=== PATIENT | male | born 1970 | race Caucasian/White ===

== ENCOUNTER 2017-12-13 22:39 | Emergency (ER) | payer OTHER ==
[~2017-12-13] VITALS: Ht 185.4 cm; Wt 77.1 kg
[~2017-12-13 22:39] MED LIST: BACTRIM DS TAB1 EACH PO; COLACE100 MG PO; HYDROCODONE-AP1 EAC6 PO; IBUPROFEN 800800 M1 PO; ONDANSETRON HCL4 M2 PO; TRAMADOL 50 MG50 MG PO; ZOFRAN ODT4 MG PO
[2017-12-14 00:10] VITALS: BP 136/82
== END 2017-12-14 00:10 | disposition home or self-care (01) ==
LOC: M.ERS 22:39
DX: S00.83XA Contusion of other part of head, initial encounter (principal); Z88.0 Allergy status to penicillin; W22.8XXA Striking against or struck by other objects, initial encounter; Y93.89 Activity, other specified; Y92.59 Other trade areas as the place of occurrence of the external cause; Y99.8 Other external cause status

== ENCOUNTER 2018-03-19 18:18 | Emergency (ER) | payer OTHER ==
[~2018-03-19] VITALS: Ht 185.4 cm; Wt 77.1 kg
[2018-03-19 19:00] LABS: ABSOLUTE BASOPHILS 0.1 thou/uL (0.0-0.2); ABSOLUTE EOSINOPHILS 0.2 thou/uL (0.0-0.7); ABSOLUTE LYMPHOCYTES 1.3 thou/uL (0.8-5.3); ABSOLUTE MONOCYTES 0.6 thou/uL (0.0-1.2); ABSOLUTE NEUTROPHILS 7.9 thou/uL (1.6-8.1); BASOPHILS 0.7 %; EOSINOPHILS 2.1 %; HEMATOCRIT 46.7 % (42.0-52.0); HEMOGLOBIN 15.6 gm/dL (14.0-18.0); LYMPHOCYTES 13.4 %; MCH 29.2 pg (26.0-34.0); MCHC 33.3 g/dL (28.0-37.0); MCV 87.5 fL (80.0-100.0); MPV 6.3 fl. (7.2-11.1); NUCLEATED RBCS 0 /100WBC; PLATELET COUNT* 286 thou/uL (150-400); POLYS 77.8 %; RBC 5.33 mil/uL (4.50-6.00); RDW-CV 13.4 % (10.5-14.5); WBC 10.1 thou/uL (4.0-11.0)
[2018-03-19 19:07] LABS: CALCIUM 8.2 mg/dL (8.5-10.1); CREATININE 1.1 mg/dL (0.6-1.3); POTASSIUM 4.4 mmol/L (3.5-5.1)
[2018-03-19 19:12] LABS: TOTAL BILIRUBIN 0.2 mg/dL (<0.1-1.0); TOTAL PROTEIN 5.9 g/dL (6.4-8.2)
[2018-03-19 20:30] VITALS: BP 128/91
--- NOTE | 2018-03-20 13:26 | EKG ---
[place] [address] ELECTROCARDIOGRAM REPORT Name: STEWART GLASGOW Room: [facility]#: [id number] Admission: 03/19/18 Attend Phys: Discharge: 03/19/18 Date of : 66 Report #: [id number] THIS REPORT FOR: //name// [facility] ED Test Date: 2018-03-19 Test Time: 19:48:50 Pat Name: STEWART GLASGOW Department: Room: Gender: M Press Bucker: HENRIETTA : 1970 Requested By: Kelsey Wright Order Number: [id number] MD: Stewart Clements Measurements Intervals [place] Rate: 69 P: 66 [place]: 133 QRS: 53 QRSD: 78 T: 47 QT: 395 QTc: 423 Interpretive Statements Sinus rhythm Baseline wander in lead(s) II,III,aVF Compared to ECG 11/17/2015 14:35:43 Sinus arrhythmia no longer present Electronically Signed On 03-20-2018 13:26:38 CDT by Stewart Clements [email or web address] <ELECTRONICALLY SIGNED> By: Stewart Clements MD, [facility] 03/20/18 1326 47 47 Stewart Clements MD, FACC /EPI
== END 2018-03-19 20:34 | disposition home or self-care (01) ==
LOC: M.ERS 18:18
PROVIDERS: Personal Emergency Response Attendant
DX: E86.0 Dehydration (principal); R42 Dizziness and giddiness; Z90.49 Acquired absence of other specified parts of digestive tract; Z88.0 Allergy status to penicillin

== ENCOUNTER 2018-04-07 00:48 | Emergency (ER) | payer OTHER ==
[~2018-04-07] VITALS: Ht 185.4 cm; Wt 79.4 kg
[2018-04-07] MEDS ORDERED: HYDROCODON-ACE1 EAC7 PO (03:16)
[2018-04-07 03:20] VITALS: BP 122/76
== END 2018-04-07 03:20 | disposition home or self-care (01) ==
LOC: M.ERS 00:48
DX: S93.491A Sprain of other ligament of right ankle, initial encounter (principal); Z90.49 Acquired absence of other specified parts of digestive tract; Z88.0 Allergy status to penicillin; W50.2XXA Accidental twist by another person, initial encounter; Y93.89 Activity, other specified; Y92.89 Other specified places as the place of occurrence of the external cause; Y99.8 Other external cause status

== ENCOUNTER 2018-09-28 07:15 | Emergency (ER) | payer OTHER ==
[~2018-09-28] VITALS: Ht 185.4 cm; Wt 77.1 kg
[~2018-09-28 07:15] MED LIST changes: +HYDROCODON-ACE1 EAC7 PO
[2018-09-28 08:59] LABS: HEMATOCRIT 40.2 % (42.0-52.0); HEMOGLOBIN 13.5 gm/dL (14.0-18.0); MCH 29.2 pg (26.0-34.0); MCHC 33.6 g/dL (28.0-37.0); MCV 86.9 fL (80.0-100.0); MPV 6.4 fl. (7.2-11.1); NUCLEATED RBCS 0 /100WBC; PLATELET COUNT* 291 thou/uL (150-400); RBC 4.63 mil/uL (4.50-6.00); RDW-CV 13.3 % (10.5-14.5); WBC 10.6 thou/uL (4.0-11.0)
[2018-09-28 09:08] LABS: CALCIUM 7.9 mg/dL (8.5-10.1); CREATININE 0.8 mg/dL (0.6-1.3); POTASSIUM 3.8 mmol/L (3.5-5.1)
[2018-09-28] MEDS ORDERED: HYDROCODONE-AP1 EAC6 PO (10:20)
[2018-09-28 10:28] LABS: ABSOLUTE BASOPHILS 0.1 thou/uL (0.0-0.2); ABSOLUTE EOSINOPHILS 0.2 thou/uL (0.0-0.7); ABSOLUTE LYMPHOCYTES 1.1 thou/uL (0.8-5.3); ABSOLUTE MONOCYTES 0.7 thou/uL (0.0-1.2); ABSOLUTE NEUTROPHILS 8.5 thou/uL (1.6-8.1)
[2018-09-28 10:30] LABS: PLATELET ESTIMATE ADEQUATE
[2018-09-28 10:45] VITALS: BP 148/89
--- NOTE | 2018-09-28 23:26 | CON ---
[address] [address] CONSULTATION Name: MYAHSTEWART Cardoza [id number] Admission: 09/28/18 Attend Phys: Discharge: 09/28/18 Date of : 66 Report #: [id number] THIS REPORT FOR: //name// CC: [facility] physician/PCP Osvaldo King DICTATED BY: Chi Crawford DO DATE OF SERVICE: 09/28/2018 ORTHOPEDIC CONSULTATION TIME: 10:21 a.m. REASON FOR CONSULTATION: Left hand crush injury. HISTORY OF PRESENT ILLNESS: The patient is a pleasant 48-year-old male who works at the [employer]. 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 The machine apparently hit right at or just proximal to the radiocarpal joint. He was then brought to the Emergency Room at [facility], where x-rays were taken. There was a significant amount of dorsal soft tissue swelling over the distal forearm as well as generalized swelling throughout the hand. He had quite a bit of pain upon initial presentation, for which our services were consulted to evaluate and rule out compartment syndrome. The x-rays that were obtained demonstrated no long bone fractures of the radius or ulna; however, there was some widening of the scapholunate interval and small amount of dorsal subluxation on one of the views of the wrist, concerning for ligamentous injury about the wrist. Upon talking with the gentleman, he states that his swelling has gone down since he first arrived at the ER for several hours ago. He also states that the pain is better and he is able to move his fingers comfortably, where he initially could not move his fingers. He states that his pinched nerve in his back actually is hurting him more than his hand and wrist currently. He denies any numbness or tingling in any of the digits at this time. Denies any loss of sensation or coolness in the digits. He denies any other musculoskeletal complaints. PAST MEDICAL HISTORY: None listed. PAST SURGICAL HISTORY: 1. Stomach surgery. 2. Appendectomy in 2013. MEDICATIONS: None. ALLERGIES: [place] [address] CONSULTATION Name: STEWART GLASGOW Room: [facility]#: [id number] Admission: 09/28/18 Attend Phys: Discharge: 09/28/18 Date of : 66 Report #: [id number] FAMILY HISTORY: Noncontributory. SOCIAL HISTORY: Denies any tobacco or alcohol use. REVIEW OF SYSTEMS: A 12-point review of systems is otherwise negative, except for the above-mentioned HPI. PHYSICAL EXAMINATION: GENERAL: Alert, oriented, no acute distress. HEENT: Head normocephalic, atraumatic. Eyes, extraocular motion intact. Ears are normal. Mouth, mucosa moist. NECK: Supple. CARDIOVASCULAR: Cap refill is brisk. ABDOMEN: Soft. MUSCULOSKELETAL: Examination of the left hand demonstrates generalized swelling throughout the hand, with swelling dorsally over the distal forearm. There is a small abrasion over the small and ring finger with a small amount of bleeding present. Upon palpation, the proximal forearm is soft over the swollen area of the dorsum of the forearm distally. There appears to be quite a bit of subcutaneous soft tissue swelling; however, the forearm itself is compressible and not very tender to palpation in this area. The volar aspect of the forearm is soft and compressible. There is generalized swelling throughout the wrist. The hypothenar eminence is soft and compressible. There is no pain with translation of the metacarpals. The thenar eminence is slightly more swollen and mildly tender. However, there is no pain with passive range of motion of the thumb, MCP joint or IP joint. There is also no pain with passive adduction of the thumb. There is some discomfort with opposition secondary to the swelling. There is no focal point tenderness on any of the metacarpals or phalanges. There is no pain with passive range of motion at the PIP, DIP or MCP joints of the other 4 digits. Cap refill is brisk, less than 2 seconds on all 5 digits. Sensation is intact in the median, radial and ulnar nerve distributions. There are no paresthesias present. Radial pulses are +2/4. IMAGING DATA: X-rays reviewed demonstrated no long bone forearm fracture. There is questionable fracture that is nondisplaced of the trapezium. There is widening of the scapholunate interval. On an oblique of the wrist, there was a questionable dorsal subluxation of the ulna; however, the true lateral of the wrist does not appear to be so. It is difficult to examine the wrist clinically due to pain; however, there may be some concern for a ligamentous injury throughout the radiocarpal joint. IMPRESSION: Left wrist crush injury. PLAN: At this time, we had a lengthy discussion with the patient and his mother. We discussed all the worrisome signs for compartment syndrome. At this [address] [address] CONSULTATION Name: STEWART GLASGOW [facility] [id number] Admission: 09/28/18 Attend Phys: Discharge: 09/28/18 Date of : 66 Report #: [id number] point in time, based on physical exam as well as the overall course of the injury and the improvement in the pain and swelling he has had since the injury actually happened, I am not overly concerned about a compartment syndrome at this time. However, we did discuss that he could have an evolving compartment syndrome. We expressed the importance of continued ice and elevation. A soft dressing was placed to try and help prevent any further swelling; however, this could be removed if he should have increasing pain or paresthesias. He was also expressed the importance that if he does develop pain or paresthesias, he is to immediately return to the ER for further evaluation as this could be an evolving compartment syndrome. In regards to the probable ligamentous injury about the wrist, we would recommend he follow up with a hand surgeon who specializes in this area and can further work up the injury. We would recommend a followup within 1 week, if not sooner, should there be any concern with the increasing pain or development of paresthesias. <ELECTRONICALLY SIGNED> By: Stewart Madden DO 09/28/18 2326 1029 [id number] Madden DO /nt
== END 2018-09-28 10:45 | disposition home or self-care (01) ==
LOC: M.ERS 07:15
PROVIDERS: Emergency Medicine Emergency Medical Services
DX: S62.172A Displaced fracture of trapezium [larger multangular], left wrist, initial encounter for closed fracture (principal); Z90.49 Acquired absence of other specified parts of digestive tract; Z88.0 Allergy status to penicillin; X58.XXXA Exposure to other specified factors, initial encounter; Y93.89 Activity, other specified; Y92.89 Other specified places as the place of occurrence of the external cause; Y99.8 Other external cause status

== ENCOUNTER 2018-09-28 21:51 | Inpatient (IN) | payer OTHER ==
[~2018-09-28] VITALS: Ht 185.4 cm; Wt 77.1 kg
--- NOTE | ~2018-09-28 | OP ---
[address] [address] OPERATIVE REPORT Name: RYNE GLASGOW Room: [address] IN M.R.#: [id number] Admission: 09/29/18 Attend Phys: Jose Alberto Greer MD Discharge: Date of : 66 Report #: [id number] THIS REPORT FOR: //name// CC: [facility] DICTATED BY: Darren Albrecht DO DATE OF SERVICE: 09/30/2018 PREOPERATIVE DIAGNOSIS: Left hand compartment syndrome. POSTOPERATIVE DIAGNOSIS: Left hand compartment syndrome. PROCEDURE PERFORMED: Left hand 10-compartment fasciotomy. SURGEON: Falguni Winn MD. ASSISTANTS: 1. Darren Albrecht DO. 2. Hellen Johnson DO. ANESTHESIA: General. ESTIMATED BLOOD LOSS: 50 mL. COMPLICATIONS: None. TOURNIQUET: None. DISPOSITION: Stable to PACU. 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 He was initially presented to [facility] Emergency Department with symptoms consistent with acute carpal tunnel syndrome and compartment syndrome. He underwent fasciotomy and acute carpal tunnel release that evening upon presentation. This morning, he was having increased pain and swelling to the left hand. He had pain with passive stretch of the left hand. A fasciotomy of the left hand was recommended for the patient. The risks, benefits, alternatives, complications were discussed and he did wish to proceed with this. DESCRIPTION OF PROCEDURE: The patient was seen and examined in the preoperative holding area. The correct operative extremity was marked by the operating surgeon. The risks, benefits, alternatives [place] [address] OPERATIVE REPORT Name: MYAHRYNE Sony Room: [address] IN [facility].#: [id number] Admission: 09/29/18 Attend Phys: Jose Alberto Greer MD Discharge: Date of : 66 Report #: [id number] discussed and he wished to proceed. Written consent was obtained for the procedure. The patient was then transferred to the operating room and placed supine on the operating room table. He was given the benefit of general anesthesia. The left upper extremity was placed on a hand table. A well-padded tourniquet was placed to the left upper arm, but was not inflated during the procedure. Timeout was performed to verify the correct patient, procedure and operative extremity and all were in agreement. The wound VAC was removed and the left upper extremity was prepped in the usual sterile fashion. Next procedure began by using a 15 blade scalpel to perform an incision over the hypothenar compartment of the volar left hand. Blunt dissection was carried down to fully decompress the compartment. This was noted to be very taut and have a herniation of the muscle through the fascia upon incision. Next, the thenar compartment incision was performed with a #15 blade scalpel. Blunt dissection was then carried down through this to ensure complete release of the compartment. Attention was then turned dorsally where 2 longitudinal skin incisions were made over the second and fourth metacarpals. Blunt dissection was carried down to carefully release all four dorsal compartments. Upon finishing, all compartments were soft and compressible and the soft tissue swelling had decreased significantly to the left hand. The volar forearm was noted to be somewhat taut in the proximal aspect of the skin incision and had some tension. Therefore, the decision was made to extend this volar forearm incision. A 15 blade scalpel was used to extend the volar forearm incision proximally. Scissor dissection was used to further release the compartments. After finishing, the volar forearm compartments were soft and compressible. The volar forearm incision was closed with a Roque Sandal technique utilizing vessel loops. The hypothenar incision was left open due to the amount of pressure that was in this compartment upon release. The thenar and two dorsal incisions were closed primarily with june. Sterile dressing of Xeroform, 4 x 4s, Kerlix and an Vasile wrap was applied to the left upper extremity. The patient was awakened from anesthesia, transferred to the PACU in stable condition. The patient tolerated the procedure well. There were no complications. POSTOPERATIVE PLAN: The patient will be transferred back to the medical floor. He will be nonweightbearing to the left upper extremity. We will maintain his soft dressing to the left upper extremity. He will be encouraged to ice and elevate the left upper extremity. Appropriate pain control will be initiated. We will tentatively plan to return to the operating room over the next 48-72 hours for definitive closure as the soft tissue allows. By: 1557 [id number] Winn DO /narinder
--- NOTE | ~2018-09-28 | OP ---
[address] [address] OPERATIVE REPORT Name: GLASGOWRYNE Sony Room: [address] IN ..#: [id number] Admission: 09/29/18 Attend Phys: Jose Alberto Greer MD Discharge: 10/05/18 Date of : 66 Report #: [id number] THIS REPORT FOR: //name// CC: [facility] physician/PCP Jose Alberto Duron DATE OF SURGERY: 10/03/2018 PREOPERATIVE DIAGNOSIS: Left forearm and hand open fasciotomy wounds. POSTOPERATIVE DIAGNOSIS: Left forearm and hand open fasciotomy wounds. PROCEDURE: Irrigation and non-excisional debridement of the left forearm and hand fasciotomy wounds with closure of the fasciotomy wound. SURGEON: Falguni Winn DO. FROZEN PIE MAKER: Cade Jacobs DO. ANESTHESIA: General. ESTIMATED BLOOD LOSS: 50 mL. SPECIMENS: None. DRAINS: None. COMPLICATIONS: None. CONDITION: The patient is stable. DISPOSITION: PACU to Med/Surg floor. ANTIBIOTICS: 2 grams Ancef IV preoperatively. TOURNIQUET: Not used. INDICATIONS FOR PROCEDURE: The patient is a very pleasant 48-year-old male who unfortunately had his hand caught in a hand grape crusher late last week. He initially underwent carpal tunnel and volar forearm fasciotomy for suspected compartment syndrome. He continued to have significant pain to the hand, especially with flexion and extension of the MCP joint. Therefore, on 09/30/2018, I took him to the operating room for completion of the hand fasciotomies as well as extension of the volar forearm fasciotomy incision. This was provisionally closed with a vessel loop closure and at this point, I did recommend irrigation and debridement with possible [place] [address] OPERATIVE REPORT Name: RYNE GLASGOW Room: [address] IN [facility].#: [id number] Admission: 09/29/18 Attend Phys: Jose Alberto Greer MD Discharge: 10/05/18 Date of : 66 Report #: [id number] wounds to the left forearm to be done this morning. The benefits, risks, complications and alternatives to this procedure were discussed with the patient in detail. These include but are not limited to bleeding, surgical site infection, neurovascular compromise, wound dehiscence, skin necrosis, need for graft coverage, continued pain, need for further surgery, DVT, PE as well as the inherent risks of anesthesia. The patient understands these risks and is agreeable to proceed. Consent was signed in the preoperative holding area and the operative site was marked in the preoperative holding area as well. DESCRIPTION OF PROCEDURE: The patient was brought to the operating room and placed supine on the operating table. He was administered general anesthetic. A well-padded tourniquet was placed on the box portion of the left arm. The vessel loops and june were removed from the prior closure. The left upper extremity was then sterilely prepped with Betadine and draped freely in the usual fashion. A timeout was performed confirming correct patient, site and procedure, surgical site murphy were identified and all in the room in agreement. The procedure began with irrigation of the wound with approximately 3 liters of saline. Mechanical debridement was carried out. All of the muscle was appeared to be in excellent condition and was viable. We then started closure and using a combination of both retention sutures and simple sutures, we were able to get the entire incision closed starting at the distal most aspects of the incision and progressing our way towards the metal. After we had placed all of our sutures, the compartments were once again reinspected. They were noted to be soft at this time. The edges of the incision at the ulnar aspect of the hand, incision appeared to be somewhat macerated with little capillary refill; however, the rest of the wound edges appeared to be in good condition. At this time, the wounds were then thoroughly cleaned with wet and dry sponges. We then applied dressings of Xeroform, 4 x 4's, ABD, Kerlix and Vasile bandage. He will be monitored postoperatively with q.2 hour neuro checks to ensure he has not redeveloped any sort of compartment syndrome. The patient tolerated the procedure well and was transferred to PACU in stable condition. All needle, instrument and sponge counts were correct x 2 and I was present throughout all pertinent portions of the procedure. POSTOPERATIVE PLAN: Again, he will be discharged to Med/Surg floor. He will be monitored with q.2 neuro checks. Plan to take dressings down in approximately 48 hours and reassess the wounds and we may consult wound care at that time if there is any concern for necrosis of the skin edges. By: 0927 Marti Winn DO /narinder
[2018-09-28 21:56] VITALS: BP 155/102
[2018-09-28 22:34] LABS: ABSOLUTE BASOPHILS 0.1 thou/uL (0.0-0.2); ABSOLUTE EOSINOPHILS 0.2 thou/uL (0.0-0.7); ABSOLUTE LYMPHOCYTES 1.7 thou/uL (0.8-5.3); ABSOLUTE MONOCYTES 0.7 thou/uL (0.0-1.2); BASOPHILS 0.8 %; EOSINOPHILS 2.2 %; HEMOGLOBIN 14.1 gm/dL (14.0-18.0); LYMPHOCYTES 19.8 %; MCH 30.1 pg (26.0-34.0); MCHC 34.4 g/dL (28.0-37.0); MCV 87.6 fL (80.0-100.0); MONOCYTES 8.3 %; MPV 6.4 fl. (7.2-11.1); NUCLEATED RBCS 0 /100WBC; PLATELET COUNT* 294 thou/uL (150-400); POLYS 68.9 %; RBC 4.68 mil/uL (4.50-6.00); RDW-CV 13.2 % (10.5-14.5); WBC 8.7 thou/uL (4.0-11.0)
[2018-09-28 22:41] LABS: APTT 24.9 Seconds (25.0-31.3); CALCIUM 7.7 mg/dL (8.5-10.1); CREATININE 1.1 mg/dL (0.6-1.3); INR 1.1; POTASSIUM 3.4 mmol/L (3.5-5.1); PROTIME 11.1 Seconds (9.20-11.50)
[2018-09-28 22:45] LABS: ALBUMIN 2.6 g/dL (3.4-5.0); TOTAL BILIRUBIN 0.3 mg/dL (<0.1-1.0); TOTAL PROTEIN 5.2 g/dL (6.4-8.2)
[2018-09-28 23:48] VITALS: BP 155/102
--- NOTE | 2018-09-29 01:01 | NUR ---
PAGED DR. HERMAN FOR ADMISSION TO HOSPITAL POST OP.
--- NOTE | 2018-09-29 01:22 | NUR ---
[address]ND PAGE TO DR. HERMAN SENT
[2018-09-29 01:40] VITALS: BP 145/84
[2018-09-29 04:00] VITALS: BP 139/86
[2018-09-29 06:00] VITALS: BP 140/87
--- NOTE | 2018-09-29 07:01 | NUR ---
PATIENT ARRIVED TO UNIT @ 0140. ON 2L NC
[2018-09-29 07:45] VITALS: BP 120/76
--- NOTE | 2018-09-29 13:50 | EKG ---
[place] [address] ELECTROCARDIOGRAM REPORT Name: RYNE GLASGOW Room: [address] IN R.#: [id number] Admission: 09/29/18 Attend Phys: JoseA lberto Greer MD Discharge: Date of : 66 Report #: [id number] THIS REPORT FOR: //name// [facility] ED Test Date: 2018-09-28 Test Time: 22:25:36 Pat Name: RYNE GLASGOW Department: Room: Gender: M Botanical Technical Officer: Raiza MCKEON : 1970 Requested By: Grace Wu Order Number: [id number] MD: Jhon Toro Measurements Intervals [place] Rate: 79 P: 58 [place]: 135 QRS: 67 QRSD: 75 T: 66 QT: 386 QTc: 443 Interpretive Statements Sinus rhythm Probable left atrial enlargement Probable left ventricular hypertrophy Compared to ECG 03/19/2018 19:48:50 No significant changes Electronically Signed On 09-29-2018 13:50:09 PHOTONICS ENGINEER by Jhon Toro [email or web address] <ELECTRONICALLY SIGNED> By: Jhon Toro MD, [facility] 09/29/18 1350 24 Jhon Toro MD, FAC /EPI
[2018-09-29 15:51] VITALS: BP 115/70
--- NOTE | 2018-09-29 20:25 | NUR ---
PT ALERT AND ORIENTED X 4. PAIN MANAGED WITH PO HYDROCODONE DURING SHIFT. IV PATENT. DENIES NAUSEA. WOUND VAC TO LEFT HAND WITH SEROSANGUINEOUS DRAINAGE. LEFT HAND SWELLING AND ELEVATED ON PILLOW. ICE PACK IN USE. VS STABLE. HOURLY ROUNDS MAINTAINED. UP WITH SBA. USES URINAL @ BEDSIDE. WILL USE CALL LIGHT FOR ASSISTANCE. CALL LIGHT WITHIN REACH. NURSING TO CONTINUE TO MONITOR.
[2018-09-29 20:30] VITALS: BP 119/66
[2018-09-30 00:24] VITALS: BP 131/85
[2018-09-30 05:50] LABS: HEMOGLOBIN 13.1 gm/dL (14.0-18.0); MCH 29.5 pg (26.0-34.0); MCHC 33.7 g/dL (28.0-37.0); MCV 87.5 fL (80.0-100.0); MPV 6.8 fl. (7.2-11.1); RBC 4.46 mil/uL (4.50-6.00); RDW-CV 13.3 % (10.5-14.5); WBC 10.2 thou/uL (4.0-11.0)
--- NOTE | 2018-09-30 08:14 | NUR ---
PATIENT HAS SLEPT WELL THROUGHOUT THE NIGHT. PATIENT STATED THAT HE WOULD CALL WHEN NEEDING PAIN MEDICATIONS. PATIENT WANTED TO SLEEP. NO COMPLAINTS DURING THE NIGHT. VSS ON RA. IV IN RIGHT FOREARM-SL. DRESSING IS C/D/I TO LEFT ARM AND WOUND VAC TO SUCTION, ARM ELEVATED AND PATIENT HAS REMAINED NWB TO THAT ARM. PATIENT HAS REMAINED NPO SINCE MIDNIGHT. PATIENT INSTRUCTED TO USE CALL LIGHT WHEN NEEDING ASSISTANCE. HOURLY ROUNDS MADE. WILL CONTINUE WITH PLAN OF CARE AND NURSING TO MONITOR.
[2018-09-30 08:30] VITALS: BP 145/94
--- NOTE | 2018-09-30 12:00 | NUR ---
PT.DROWSY. STATED HE LIVES WITH HIS MOM. HE HAS NO DME. IS NORMALLY INDEPENDENT AND WORKS. GAVE HIM PACKET FOR THE UNINSURED. PUT WOUND VAC PAPERS ON CHART FILLED OUT TO THE BEST OF MY ABILITY WITH INFORMATION KNOWN AT THIS TIME. NEEDS TO SIGN SO FORM CAN BE FAXED TO [facility]. PT.GOING TO SURGERY THIS AFTERNOON.
--- NOTE | 2018-09-30 18:39 | NUR ---
PT ALERT AND ORIENTED X 4. NPO FOR FASCIOTOMY OF THE LEFT HAND. RECEIVED IV MORPHINE FOR PAIN RELIEF. DENIES NAUSEA. IV PATENT. LEFT ROOM FOR FASCIOTOMY @ 1330. RETURNED TO UNIT @ 1705. SONYA WRAP ON LEFT ARM/HAND C/D/I. HOURLY ROUNDS MAINTAINED. CALL LIGHT WITHIN REACH. SCDS ON BILAT. NURSING TO CONTINUE TO [facility].
[2018-09-30 20:00] VITALS: BP 130/70
[2018-10-01 00:45] VITALS: BP 103/61
[2018-10-01 04:30] VITALS: BP 127/75
--- NOTE | 2018-10-01 05:34 | NUR ---
ASSUMED CARE OF PT AT 1900 PT ALERT AND ORIENTED X4 VS AND ASSESSMNET STABLE PSITIVE CMS CHECKS TO JOHN FUENTES CDI. WILL CONTINUE PLAN OF CARE
[2018-10-01 08:30] VITALS: BP 127/76
[2018-10-01 09:49] LABS: CALCIUM 7.9 mg/dL (8.5-10.1); CREATININE 0.8 mg/dL (0.6-1.3); POTASSIUM 3.4 mmol/L (3.5-5.1)
--- NOTE | 2018-10-01 13:50 | NUR ---
SW checked wound vac orders and a physician did not sign the wound vac orders at this time. MANSI discussed with pt nurse and pt nurse said that pt might not need a wound vac for home and that there was not currently one with pt since surgery. CM to continue to follow to assist with safe dc planning.
--- NOTE | 2018-10-01 19:26 | NUR ---
PT ALERT AND ORIENTED X 4. PAIN MANAGED WITH IV MORPHINE. DENIES NAUSEA. UP WITH ASSIST X 1. LEFT ARM DRESSING-C/D/I. NON-WEIGHTBEARING LUE. WILL USE CALL LIGHT FOR ASSISTANCE. NURSING TO CONTINUE TO MONITOR.
[2018-10-01 19:40] VITALS: BP 129/87
[2018-10-02 04:00] LABS: ABSOLUTE BASOPHILS 0.1 thou/uL (0.0-0.2); ABSOLUTE EOSINOPHILS 0.2 thou/uL (0.0-0.7); ABSOLUTE LYMPHOCYTES 1.9 thou/uL (0.8-5.3); ABSOLUTE MONOCYTES 0.5 thou/uL (0.0-1.2); ABSOLUTE NEUTROPHILS 3.8 thou/uL (1.6-8.1); BASOPHILS 0.8 %; EOSINOPHILS 2.6 %; HEMATOCRIT 39.5 % (42.0-52.0); HEMOGLOBIN 13.2 gm/dL (14.0-18.0); MCH 29.4 pg (26.0-34.0); MCHC 33.3 g/dL (28.0-37.0); MCV 88.3 fL (80.0-100.0); MONOCYTES 7.2 %; MPV 6.6 fl. (7.2-11.1); NUCLEATED RBCS 0 /100WBC; PLATELET COUNT* 328 thou/uL (150-400); POLYS 59.4 %; RBC 4.48 mil/uL (4.50-6.00); RDW-CV 13.3 % (10.5-14.5); WBC 6.4 thou/uL (4.0-11.0)
[2018-10-02 04:06] VITALS: BP 123/78
[2018-10-02 04:36] LABS: ALBUMIN 2.2 g/dL (3.4-5.0); CALCIUM 7.8 mg/dL (8.5-10.1); CREATININE 0.8 mg/dL (0.6-1.3); POTASSIUM 4.3 mmol/L (3.5-5.1); TOTAL BILIRUBIN 0.2 mg/dL (<0.1-1.0); TOTAL PROTEIN 4.9 g/dL (6.4-8.2)
--- NOTE | 2018-10-02 04:36 | NUR ---
PATIENT HAS REMAINED ALERT AND ORIENTED X 4 THROUGHOUT THE SHIFT AND RESTING QUIETLY ON HOURLY ROUNDS. LEFT WRIST/HAND DRESSING HAS REMAINED INTACT AND DRY. PATIENT HAS SENSATION IN FINGERTIPS AND IS ABLE TO MOVE DIGITS. MEDICATED FOR PAIN X5 TO GOOD EFFECT. POTASSIUM REPLACED THIS SHIFT. AWAITING AM LAB RECHECK RESULTS. VITAL SIGNS STABLE, AFEBRILE. CONTINUE TO MONITOR.
[2018-10-02 08:15] VITALS: BP 134/81
[2018-10-02 16:30] VITALS: BP 132/80
--- NOTE | 2018-10-02 17:36 | NUR ---
PT ALERT AND ORIENTED X 4. PAIN CONTROL MAINTAINED WITH IV MORPHINE AND PO HYDROCODONE. IV PATENT. VS STABLE. UP WITH SBA X 1 FOR BATHING. DRESSING CHANGE TO LEFT FA/HAND COMPLETED @ 1205 BY PHYSICIAN AND HAS REMAINED C/D/I DURING SHIFT. PT INDICATES HAVING FEELING AND ABLE TO MOVE ALL DIGITS. PHOTOGRAPH TAKEN DURING DRESSING CHANGE. PT TO BE NPO AFTER MN. HOURLY ROUNDS MAINTAINED. CALL LIGHT WITHIN REACH.
[2018-10-02 19:50] VITALS: BP 140/86
[2018-10-03 04:12] VITALS: BP 140/86
--- NOTE | 2018-10-03 04:36 | NUR ---
PATIENT AT FIRST ROUNDS IN SEVERE PAIN, CRYING. MEDS PER ORDERS AND CALL TO PHYSICIAN. NEW ORDERS RECEIVED. INCREASE IN PAIN MEDS A DEFINATE IMPROVEMENT IN PATIENT COMFORT AND DID REST QUIETLY THEREAFTER ON HOURLY ROUNDS. LUE ELEVATED ON PILLOW WITH DRESSING CLEAN AND DRY. NEUROVASCULAR ASSESSMENT UNCHANGED. VITAL SIGNS STABLE. NPO AT MIDNIGHT FOR PROCEDURE TODAY. CONTINUE TO MONITOR.
[2018-10-03 10:12] LABS: ABSOLUTE BASOPHILS 0.1 thou/uL (0.0-0.2); ABSOLUTE EOSINOPHILS 0.2 thou/uL (0.0-0.7); ABSOLUTE LYMPHOCYTES 1.3 thou/uL (0.8-5.3); ABSOLUTE MONOCYTES 0.5 thou/uL (0.0-1.2); ABSOLUTE NEUTROPHILS 7.1 thou/uL (1.6-8.1); BASOPHILS 1.2 %; EOSINOPHILS 2.3 %; HEMATOCRIT 41.2 % (42.0-52.0); HEMOGLOBIN 13.6 gm/dL (14.0-18.0); LYMPHOCYTES 14.5 %; MCH 29.1 pg (26.0-34.0); MONOCYTES 5.4 %; MPV 6.2 fl. (7.2-11.1); NUCLEATED RBCS 0 /100WBC; PLATELET COUNT* 368 thou/uL (150-400); POLYS 76.6 %; RBC 4.68 mil/uL (4.50-6.00); RDW-CV 13.4 % (10.5-14.5); WBC 9.2 thou/uL (4.0-11.0)
[2018-10-03 10:19] LABS: CALCIUM 8.1 mg/dL (8.5-10.1); CREATININE 0.9 mg/dL (0.6-1.3); POTASSIUM 4.3 mmol/L (3.5-5.1)
[2018-10-03 11:00] VITALS: BP 144/98
[2018-10-03 15:43] VITALS: BP 125/75
--- NOTE | 2018-10-03 17:04 | NUR ---
ALERT AND ORIENTED X4. UP WITH STAND BY ASSIST IN ROOM. IV IS PATENT AND SALINE LOCKED. PAIN BEING MANAGED WITH PO AND IV PAIN MEDICATION. DENIES NAUSEA. NON WEIGHT BEARING STATUS HAS BEEN MAINTAINED THROUGHOUT SHIFT. LEFT ARM HAS MAINTAINED ELEVATED. TOLERATING DIET. VSS ON ROOM AIR. HOURLY ROUNDS HAVE BEEN MAINTAINED THROUGHOUT SHIFT. CALL LIGHT IS WITHIN REACH. NURSING WILL CONTINUE TO MONITOR.
[2018-10-03 20:00] VITALS: BP 137/80
[2018-10-03 23:45] VITALS: BP 135/79
[2018-10-04 04:00] VITALS: BP 157/98
--- NOTE | 2018-10-04 04:55 | NUR ---
ASSUMED CARE OF PT AT 1900 PT ALERT AND ORIENTED X4 VS AND ASSESSMENT STABLE FOR PT. LUE DSG CDI, FINGERS SWOLLEN WITH CAP REFILL >3 SEC. PT NON COMPLIANT WITH ELEVATION USING ONLY ONE SMALL PILLOW ENOURAGED PT TO USE TWO PT REFUSED STAING HE COULDNT SLEEP WITH IT LIKE THAT ICE APPLIED. PT GIVEN MORPHINE Q3H AT THE 0420 DOSE PT WAS GIVEN HIS IV MORPHINE THROUGH HIS HAND IV THEN I PROCEEDED TO FLUSH THE R FA IV TO SEE IF IT WAS WORKING DUE TO REPORTS FROM PREVIOUS SHIFT THAT IT HAD BEEN LEAKING IF SO I WOULD REMOVE IT LEAKED SLIGHTLY. PT THEN CALLED OUT 10 MINUTES AND STATED TO TECH THAT THE NURSE "PUT MY PAIN MEDS THROUGH THE WRONG IV AND THEY LEAKED OUT SO I DIDNT GET THEM" WENT IN WITH CHARGE NURSE TO EXPLAIN TO PT THAT I HAD GIVEN THE MEDS THROUGH THE HAND IV PT STATED " WELL I DIDNT FEEL IT AND IT DIDNT MAKE ME GO TO SLEEP AND IM STILL IN PAIN" CONTACTED NURSING SYSTEMS ACCOUNTANT TO SPEAK WITH PT. WILL CONTINUE PLAN OF CARE.
[2018-10-04 08:00] VITALS: BP 144/79
[2018-10-04 16:20] VITALS: BP 144/73
--- NOTE | 2018-10-04 18:25 | NUR ---
ALERT AND ORIENTED X4. UP AD SANAM IN ROOM. IV IS PATENT AND SALINE LOCKED. PAIN BEING MANAGED WITH PO AND IV PAIN MEDICATION. DENIES NAUSEA. DRESSING IS CLEAN, DRY AND INTACT. LEFT UPPER EXTREMITY HAS BEEN ELEVATED THROUGHOUT SHIFT. TOLERATING DIET. VITAL SIGNS STABLE ON ROOM AIR. CALL LIGHT IS WITHIN REACH. NURSING WILL CONTINUE TO MONITOR.
[2018-10-04 20:00] VITALS: BP 135/83
--- NOTE | 2018-10-05 06:01 | NUR ---
assumed patient care at 1900. Patient alert and oriented x4. Pain controlled through shift with oral pain medications. SCD's in place for partial shift. Cap refill noted to be <3s. Ambulates to the restroom ad jono. HOurly rounding and editorial director completed as documented.
[2018-10-05 08:25] VITALS: BP 128/79
[2018-10-05] MEDS ORDERED: OXYCODONE HCL 55 MG PO (10:19)
[2018-10-05] MEDS ORDERED: COLACE100 MG PO (10:23)
[2018-10-05 10:24] VITALS: BP 128/79
[2018-10-05 10:52] VITALS: BP 128/79
--- NOTE | 2018-10-05 10:52 | NUR ---
PT GIVEN DISCHARGE INFORMATION AT THIS TIME. IV REMOVED. PRESCRIPTIONS GIVEN. PT DENIED ANY FURTHER QUESTIONS. PT LEFT AMBULATORY WITH NURSING STAFF TO HOME CARE.HOURLY ROUNDING COMPLETED.
--- NOTE | 2018-10-07 07:13 | OP ---
[address] [address] OPERATIVE REPORT Name: STEWART GLASGOW Room: [address]#: [id number] Admission: 09/29/18 Attend Phys: Jose Alberto Greer MD Discharge: 10/05/18 Date of : 66 Report #: [id number] THIS REPORT FOR: //name// CC: [facility] physician/PCP Sabino Duron DICTATED BY: Igor Collazo DO DATE OF SERVICE: 09/28/2018 PREOPERATIVE DIAGNOSES: 1. Left hand compartment syndrome. 2. Left forearm compartment syndrome. 3. Left hand acute carpal tunnel syndrome. POSTOPERATIVE DIAGNOSES: 1. Left hand compartment syndrome. 2. Left forearm compartment syndrome. 3. Left hand acute carpal tunnel syndrome. PROCEDURES: 1. Left hand carpal tunnel release. 2. Fasciotomy to volar forearm and hand. 3. Application of wound VAC, left upper extremity. SURGEON: Stewart Madden DO. ANESTHESIA: Igor Collazo DO and Sharad Espinal DO. ESTIMATED BLOOD LOSS: 25 mL. PREOPERATIVE ANTIBIOTICS: One gram of Ancef. COMPLICATIONS: None. DRAINS: One medium Wound VAC. SPECIMENS: None. CONDITION: The patient is stable to PACU. INDICATIONS FOR PROCEDURE: This 48-year-old male suffered a crush injury at work earlier today. He was seen in the Emergency Department this morning and discharged home. There was concern for hand compartment syndrome and he was instructed to return if he had any worsening or evolving symptoms. The patient went home, elevated his hand and [place] [address] OPERATIVE REPORT Name: STEWART GLASGOW Room: [address] [place] .R.#: [id number] Admission: 09/29/18 Attend Phys: Jose Alberto Greer MD Discharge: 10/05/18 Date of : 66 Report #: [id number] paresthesias and returned to the Emergency Room. He was evaluated by Orthopedic Department in the Emergency Room and a clinical diagnosis of compartment syndrome was made and the patient consented for operative intervention. DESCRIPTION OF PROCEDURE: Once written and verbal consent was obtained, the patient was taken from the Emergency Room to the preoperative holding area to the operating suite and given the benefit of general anesthesia. The left upper extremity was prepared for surgery. A well-padded tourniquet was sterilely prepped and draped in an baseball player manner. Time-out was performed to verify the correct operative site, location and procedure. Tourniquet was inflated to 250 mmHg and an incision was made starting at the distal palmar crease over the transverse carpal ligament and proximally to the mid forearm. The carpal tunnel was released; sharp dissection through the transverse carpal ligament. This dissection was taken distally to the vascular arch. It was taken proximally to the mid forearm. The flexor muscle bellies were adequately released. Once the volar hand and forearm fasciotomy was performed, the hand was significantly more supple and was not as tense as was encountered preoperatively. The tourniquet was deflated at 14 minutes. Hemostasis was obtained with electrocautery. The wound was thoroughly irrigated. It was elected to apply a wound VAC to the volar hand, wrist and forearm. Tourniquet was then inflated again for an additional 14 minutes for application of wound VAC. Wound VAC was applied, placed on 125 mmHg continuous suction. There was good seal and tourniquet was deflated. The patient was awakened and taken to PACU in a stable condition. <ELECTRONICALLY SIGNED> By: Walter Rodriguez DO 10/07/18 0713 [id number] Madden DO /narinder
== END 2018-10-05 10:54 | disposition home or self-care (01) | DRG 906 ==
LOC: M.ERS 21:51 → M.SUR 21:51 → M.ORTHSURG 09-29 00:57
PROVIDERS: Internal Medicine; Nurse Practitioner Family; ADMIT Internal Medicine
PROC: 0KN80ZZ Release Left Upper Arm Muscle, Open Approach (ICD-10-PCS; 2018-09-28)
PROC: 0KND0ZZ Release Left Hand Muscle, Open Approach (ICD-10-PCS; 2018-09-28)
PROC: 01N50ZZ Release Median Nerve, Open Approach (ICD-10-PCS; 2018-09-28)
PROC: 0KND0ZZ Release Left Hand Muscle, Open Approach (ICD-10-PCS; principal; 2018-09-30)
PROC: 0KD80ZZ Extraction of Left Upper Arm Muscle, Open Approach (ICD-10-PCS; 2018-10-03)
DX: T79.A12A Traumatic compartment syndrome of left upper extremity, initial encounter (principal); S52.202A Unspecified fracture of shaft of left ulna, initial encounter for closed fracture; G56.02 Carpal tunnel syndrome, left upper limb; R20.2 Paresthesia of skin; S67.32XA Crushing injury of left wrist, initial encounter; S62.172A Displaced fracture of trapezium [larger multangular], left wrist, initial encounter for closed fracture; X58.XXXA Exposure to other specified factors, initial encounter; Z90.49 Acquired absence of other specified parts of digestive tract; Z88.0 Allergy status to penicillin; Z79.899 Other long term (current) drug therapy; Z87.891 Personal history of nicotine dependence

== ENCOUNTER 2021-09-25 11:03 | Emergency (ER) | payer OTHER ==
[~2021-09-25] VITALS: Ht 185.4 cm; Wt 86.2 kg
[~2021-09-25 11:03] MED LIST changes: +OXYCODONE HCL 55 MG PO
[2021-09-25 12:07] VITALS: BP 124/68
== END 2021-09-25 12:07 | disposition home or self-care (01) ==
LOC: M.ERS 11:03
DX: M79.632 Pain in left forearm (principal); Z90.49 Acquired absence of other specified parts of digestive tract; Z88.0 Allergy status to penicillin